=== PATIENT | female | born 1955 | race Caucasian/White ===

== ENCOUNTER 2017-06-17 02:46 | Observation (INO) | payer BC, OTHER ==
[2017-06-17] VITALS (11 sets, daily range): BP systolic 86–102; BP diastolic 47–62
[~2017-06-17] VITALS: Ht 167.6 cm; Wt 60.8 kg
[~2017-06-17 02:46] MED LIST: CALC-18 PO; GLUC100026 PO; MULT-1335 PO; PROG50VI5 TP; [UNRECOGNIZED DRUG - CODE] PO; [UNRECOGNIZED DRUG - OTHER] VG
[2017-06-17 06:09] LABS: PLATELET COUNT, AUTOMATED 245 K/uL (150-450)
[2017-06-17] MEDS ORDERED: MIDAZOLAM 2 MG/2 ML VIAL IVP PRN (06:30)
[2017-06-17] MEDS ORDERED: NORMOSOL R SOLN(*) 1000 ML BAG 1,000 ML IV PRN (06:30)
[2017-06-17] MEDS ORDERED: FAMOTIDINE 20 MG TAB PO ONE (06:30)
[2017-06-17] MEDS ORDERED: LIDOCAINE/SOD BICARB 8.4% SYR ID ONE (06:30)
[2017-06-17] MEDS ORDERED: PHENAZOPYRIDINE 200 MG TAB PO ONE (06:30)
[2017-06-17] MEDS ORDERED: cefOXitin/DEX(*) 2GM/50ML PREM 50 ML IVPB ONE (06:30)
[2017-06-17] MEDS ORDERED: ROPIVACAINE 0.2% 20 ML VIAL ONE (06:38)
[2017-06-17] MEDS ORDERED: NS(*) 0.9% 100 ML BAG 100 ML ONE (06:38)
[2017-06-17] MEDS ORDERED: VASOPRESSIN 20 UNIT/ML VIAL ONE (06:38)
[2017-06-17] MEDS ORDERED: fentaNYL CITR 250 MCG/5 ML AMP ONE (07:08)
[2017-06-17] MEDS ORDERED: DEXAMETHASONE SOD PHOS 10MG/ML ONE (07:09)
[2017-06-17] MEDS ORDERED: LIDOCAINE MPF 1% 5 ML VIAL ONE (07:09)
[2017-06-17] MEDS ORDERED: ONDANSETRON 4 MG/2 ML VIAL ONE (07:09)
[2017-06-17] MEDS ORDERED: PROPOFOL EMUL(*) 10MG/ML 20 ML 20 ML ONE (07:09)
[2017-06-17] MEDS ORDERED: HALOPERIDOL LACT 5 MG/ML VIAL IM ONE (07:15)
[2017-06-17] MEDS ORDERED: NS 0.9% 20 ML SDV 20 ML ONE (07:15)
[2017-06-17] MEDS ORDERED: ACETAMINOPHEN(*)1000 MG/100 ML 100 ML IVPB ONE (07:19)
[2017-06-17] MEDS ORDERED: KETAMINE HCL 200 MG/20 ML MDV ONE (07:28)
[2017-06-17] MEDS ORDERED: ROCURONIUM BROM 10 MG/ML 10 ML ONE (07:30)
[2017-06-17] MEDS ORDERED: KETOROLAC 30 MG/ML VIAL ONE (10:08)
[2017-06-17] MEDS ORDERED: SUGAMMADEX SOD 200 MG/2 ML SDV ONE (10:08)
[2017-06-17] MEDS ORDERED: SIMETHICONE 80 MG CHEW CHEW PRN (10:20)
[2017-06-17] MEDS ORDERED: PROMETHAZINE 25 MG/ML 1 ML AMP IVP PRN (10:20)
[2017-06-17] MEDS ORDERED: ONDANSETRON 4 MG/2 ML VIAL IVP PRN (10:20)
[2017-06-17] MEDS ORDERED: BELLADONNA ALK/OPIUM 60MG SUPP PR PRN (10:20)
[2017-06-17] MEDS ORDERED: ZOLPIDEM TARTRATE 10 MG TAB PO PRN (10:20)
[2017-06-17] MEDS ORDERED: ACETAMINOPHEN 325 MG TAB PO PRN (10:20)
--- NOTE | 2017-06-17 10:34 | Post Operative Note ---
Operative Note - [employer] INST[employer]ER Operative Day Date: Jun 17, 2017 Time: 10:21 Physicians Surgeon: Davey [employer] Instructor: Ivana Anesthesia: GETA Diagnosis Pre-Op Diagnosis: Postmenopausal bleeding Uterine fibroid, cervical Post-Op Diagnosis: same Procedure Findings: large posterior cervical myoma Endometriosis of posterior pelvic peritoneum ROV chocolate cyst adhesions Procedure(s): Laparoscopic adhesiolysis LAVH/BSO/MMC Specimen Removed:(Maybe N/A): Uterus, tubes, ovaries, fibroid Complications: none [id number] Fluids Fluids: 1800 ml Estimated Blood Loss: <100 ml Dictated Date OP Note Dictated: Jun 17, 2017 Time OP Note Dictated: 10:23 Copies to: LUH FINE MD, TRAVIS MD Jun 17, 2017 10:34
[2017-06-17] MEDS ORDERED: fentaNYL CITR 100 MCG/2 ML AMP ONE (10:43)
--- NOTE | 2017-06-17 12:34 | OPERATIVE REPORT 1 ---
EVENT DATE: June 17, 2017 SURGEON: Som Mariscal MD ANESTHESIOLOGIST: Guy Hurtado MD ANESTHESIA: General endotracheal. CLAIM APPROVER: Derik Heath MD PREOPERATIVE DIAGNOSIS 1. Postmenopausal bleeding. 2. Posterior cervical uterine leiomyoma. POSTOPERATIVE DIAGNOSIS 1. Postmenopausal bleeding. 2. Posterior cervical uterine leiomyoma. 3. Endometriosis. PROCEDURE PERFORMED Laparoscopic-assisted vaginal hysterectomy, bilateral salpingo-oophorectomy, laparoscopic adhesiolysis, modified Brown's culdoplasty, diagnostic cystoscopy. ESTIMATED BLOOD LOSS Less than 100 mL. FLUIDS 1800 mL IV crystalloid. INDICATIONS This is a postmenopausal patient who has experienced multiple episodes of postmenopausal bleeding, and we have been having diagnostic difficulty. This large posterior leiomyoma distorts her cervical anatomy, and we have not been able to gain entry into the uterus for adequate tissue sampling. She has had an office endometrial biopsy attempt, and an intraoperative diagnostic H scope, that both have been inconclusive, and without sufficient endometrial tissue for diagnosis. I am not confident that we actually ever were able to sample the endometrium, and was only within the endocervix. On ultrasound, she had a relatively thin endometrial stripe, but over the course of time this uterine leiomyoma had increased in size. Her right ovary also was larger than the left and diffusely heterogeneous. She was consented for laparoscopic-assisted hysterectomy. FINDINGS Upon entering the abdomen with the laparoscope, there was an adhesion to the anterior abdominal wall near the umbilicus and extending toward the liver. This was taken down through the laparoscope. In the pelvis, the posterior cul- de-sac had filmy adhesions, and there was evidence of endometriosis along the right side. The right ovary was scarred to the posterior ovarian fossa with these filmy adhesions and did contain a chocolate cyst. As manipulation opened this cyst, a chocolate-appearing fluid was extruded. This was all consistent with endometriosis. The large myoma occupied the lower uterine segment and the entire posterior cervix, distorting the anatomy in the posterior cul-de-sac. the remainder of the uterus was free and accessible. PROCEDURE IN DETAIL The patient was brought to the operating room with a working IV, placed in the dorsal supine position, and she was placed under general endotracheal anesthesia and moved to the dorsal lithotomy position. She was prepped and draped in the usual sterile fashion. Weighted speculum was placed in the vagina. The cervix was grasped with Yung clamps, and the uterus was attempted to be sounded. The best I could sound was to a depth of 7 cm, markedly anteverted. A 6 cm RICKY uterine manipulator was selected and assembled. The cervix was dilated to accommodate and it was passed through the cervix into the uterus, bulb inflated and secured, and all other instruments were then removed. The legs were brought back to the supine position. We proceeded with the laparoscopy. Gloves were changed. The umbilicus was infiltrated with 0.2% Naropin, and a 5 mm stab incision was made. Veress needle was passed through this incision while stabilizing the anterior abdominal wall, into the abdomen, and a pneumoperitoneum was created to an intraabdominal pressure of 20 mmHg. This was reduced to 15 mmHg once all ports had been placed. The Veress needle was removed. A 5 mm bladeless trocar was passed through this incision while stabilizing the anterior abdominal wall, into the abdomen, and via direct visualization with the scope. This was performed without incident. Two additional 5 mm ports were placed in the right and left lower quadrants under similar technique and via direct visualization. The patient had been moved to the Trendelenburg position. The abdomen and pelvis was surveyed with the above findings noted. The scope was placed in the right lower quadrant port while the Gyrus device was used to take down the omental adhesion that had adhered near this umbilical port. It was carefully taken down and without incident. Cautery was used during this time for hemostasis. Upon completion, the scope was placed back in the umbilical port, and we proceeded with the procedure. The above findings were noted. The left fallopian tube and ovary were put on medial stretch, exposing the infundibulopelvic ligament. We identified the ureter along this side and followed its course into the pelvis. It was well below the operative area. We proceeded, cauterizing and dissecting the left ovary away from the pelvis up to the round ligament, which was likewise cauterized and transected. The broad ligament was then into anterior and posterior leaflets. The anterior leaflet followed along the anterior uterus , and careful dissection was performed in this location because she had a prior scar. Once adequately dissected, the posterior leaflet was dissected off uterine vasculature down to the uterosacral ligament. The uterine vasculature was then cauterized and taken down to the level of the cardinal ligament. The same procedure was followed on the contralateral side without incident. further dissection anteriorly freed up the anterior dissection, and we were able to dissect below the bladder adjacent to the anterior cervix without difficulty. In likewise fashion, the uterine vasculature in this location was cauterized and dissected down to the cardinal ligaments. The uterus was then at this point blanching well. The pneumoperitoneum was released. All instruments were secured to the patient's abdomen and covered with a sterile drape. The patient was moved back to the lithotomy position and we proceeded vaginally. Cervix was grasped again with Yung clamps and a diluted pitressin solution was used for hydrodissection. A vaginal incision was then made circumferentially around the cervix and down as near as I could approximate the posterior cul-de-sac around this fibroid. I was not able to enter the posterior cul-de-sac immediately, but was able to adequately expose this posterior cervical fibroid and allow manual morcellation of it to reduce its size until it was freely extracted. It was sent to pathology with specimen. Once this fibroid had been removed and anatomy had been restored, I was better able then to discern the posterior cul-de-sac, which was then entered sharply with Harden scissors, and a long-billed weighted speculum was inserted here. This exposed the uterosacral ligaments, which were bilaterally clamped, cut and suture ligated with a Vicryl suture and tagged for later identified. Anteriorly, the vaginal mucosa was dissected away from the cervix and pushed back. It was dissected up to he previous laparoscopic dissection, and right angle retractor was inserted in the anterior cul-de-sac. This exposed the cardinal ligaments. These were bilaterally clamped, cut and suture ligated with Vicryl suture type. The remaining vascular pedicle was isolated, clamped, cut, and the specimen was sent to pathology. The remaining pedicle was suture ligated and tagged. There were no visible bleeders at this point. The pelvis was irrigated and suctioned dry. The uterosacral ligament on each side was suture ligated to the ipsilateral vaginal mucosa, and a modified Brown 's culdoplasty was performed with external Brown's sutures incorporated. The parietal peritoneal was then repaired using 2-0 Vicryl in a running non-locking stitch. The uterosacral ligaments were tied in the midline. The remaining vaginal mucosa was repaired with a 2-0 Vicryl in a running locking stitch, and the external Brown's sutures were tied, securing the posterior fourchette of the vagina to the uterosacral ligaments. The Bills catheter was then removed, and diagnostic cystoscopy was performed. The bladder was fully inspected and found to be without injury. Both ureteral orifices were observed to have excellent urine jets with no sign of obstruction. Bladder was then drained, and Bills was left out. The legs were brought back to the supine position. Gloves were changed, and we proceeded again with laparoscopy, moving the patient to the Trendelenburg position and inspecting the pelvis for its operative result. There were no visible bleeders. It was irrigated and suctioned dry. All vascular pedicles were stable. She therefore was returned to the supine position. Pneumoperitoneum was suctioned out. All instruments were removed from the abdomen, and skin incisions were repaired with a 4-0 Monocryl simple subdermal, covered with Dermabond skin adhesive. She tolerated the procedure well. Sponge, lap, needle and instrument counts were all correct x3. She was taken to recovery in stable condition. JAYLAN
[2017-06-17] MEDS: DLR(*) 1000 ML BAG 1,000 ML IV PRN ×2 (13:00→20:19)
[2017-06-17] MEDS: KETOROLAC 30 MG/ML VIAL IVP SCH ×2 (15:50→21:24)
[2017-06-17] MEDS: DOCUSATE CALCIUM 240 MG CAP PO SCH (20:19)
[2017-06-17] MEDS: FAMOTIDINE 20 MG TAB PO SCH (20:19)
--- NOTE | 2017-06-17 21:13 | OB/GYN Progress Note ---
OB Subjective Progress Notes Subjective Doing very well. Pain controlled and nausea controlled. Was having issues earlier but better now. Good UO. GI: NEG Nausea : Voiding Well Pain: Mild OB Objective Physical Exam Vital Signs Date Time Temp Pulse Resp B/P (MAP) Pulse Ox O2 Delivery O2 Flow Rate FiO2 06/17/17 19:16 99 Room Air 06/17/17 18:58 98.8 77 16 99/52 (68) 06/17/17 13:30 1.0 Intake and Output 06/18/17 07:00 Intake Total 3060 ml Output Total 450 ml Balance 2610 ml Intake Oral 50 ml IV Total 3010 ml Output Urine Total 450 ml Urine/Stool Mix 0 ml Emesis 0 ml # Voids 3 General Appearance: Alert/Awake/No Acute Distress Neurological: No Gross deficits Cardiovascular: Normal Rhythm & Peripheral Pulses, Regular Rate and Rhythm Respiratory: No Respiratory Distress, Clear to Auscultation Abdomen: Soft, Non-Tender, Non-Distended Incision: Clean, Dry, Intact Psychological: Alert & Oriented X3, Appropriate Mood & Affect Result Diagram: 06/17/17 6607 Assessment and Plan [employer]PER[employer]ULT [employer]UCATION Plan: Routine Post-Op Care Problems: (1) Status post laparoscopic hysterectomy Assessment & Plan: Continue routine postoperative care. Bills out tomorrow. Nichol nava. LUH FINE MD Jun 17, 2017 21:12
[2017-06-18 01:33] VITALS: BP 100/47
[2017-06-18] MEDS: KETOROLAC 30 MG/ML VIAL IVP SCH (03:17)
[2017-06-18 04:19] VITALS: BP 99/59
[2017-06-18 07:05] VITALS: BP 92/48
--- NOTE | 2017-06-18 07:21 | OB/GYN Progress Note ---
OB Subjective Progress Notes Subjective Doing well. Pain controlled and ambulating increasingly on her how speed and strength. Voiding well. No heavy bleeding. GI: NEG Nausea : Voiding Well Pain: Mild OB Objective Physical Exam Vital Signs Date Time Temp Pulse Resp B/P (MAP) Pulse Ox O2 Delivery O2 Flow Rate FiO2 06/18/17 04:19 99.0 73 16 99/59 (72) 95 Room Air 06/17/17 13:30 1.0 General Appearance: Alert/Awake/No Acute Distress Neurological: No Gross deficits Cardiovascular: Normal Rhythm & Peripheral Pulses, Regular Rate and Rhythm Respiratory: No Respiratory Distress, Clear to Auscultation Abdomen: Soft, Non-Tender, Non-Distended Incision: Clean, Dry, Intact Integumentary: Skin Intact without Lesions or Rash Psychological: Alert & Oriented X3, Appropriate Mood & Affect Result Diagram: 06/17/17 0288 Assessment and Plan HEMODIALYSIS CHARGE NURSE Plan: Discharge Home Today Problems: (1) Status post laparoscopic hysterectomy LUH FINE MD Jun 18, 2017 07:21
[2017-06-18] MEDS ORDERED: PER PO (07:22)
--- NOTE | 2017-06-18 07:23 | Short(Outpt) Discharge Summary ---
Discharge Summary Reason for Hosp/Final Diag: (1) Status post laparoscopic hysterectomy Hospital Course & Plan: Continue routine postoperative care. Bills out tomorrow. May SLEILEEN tonight. Departure Discharge to: Home, Self Care Discharge Instructions Home Meds Active Scripts Oxycodone/Acetaminophen (OXYCODONE/ACETAMINOPHEN 5MG/325 MG) 5 Mg/325 Mg Tab, 1- 2 TAB PO Q4H Y for PAIN, #14 TAB 0 Refills Prov:LUH MARISCAL MD 06/18/17 Reported Medications Vaginal Moisturizer Combo No.2 (LONG LASTING VAGINAL) 7.5 Gm Gel.pf.citlali, 2-3 CITLALI VG PRN 10/16/15 Progesterone (PROGESTERONE IN OIL) 50 Mg/1 Ml Vial, 2 DROP TP BID, VIAL 10/16/15 [place]-3 Fatty Acids (SUPER OMEGA-3) 1,000 Mg Capsule, 3 CAP PO QDAY, CAPSULE 10/16/15 Calcium Carbonate (CALCIUM) 500 Mg Tab.chew, 4 TAB PO QDAY, TAB.CHEW 10/16/15 Glucosamine Sulfate 2KCL (GLUCOSAMINE) 1,000 Mg Tablet, 4 TAB PO QDAY 10/16/15 Multivitamin With Minerals (MULTIPLE VITAMIN) 1 Each Tablet, 1 EACH PO QDAY, TAB 10/16/15 Follow up Referrals: TANNING WHEEL FILLER - In Two Weeks @ [facility] with Luh Mariscal Md Diet: Regular Activity: As Tolerated, No Heavy Lifting, No Exertion Copies to: LUH MARISCAL MD, TRAVIS MD Jun 18, 2017 07:23
[2017-06-18 07:35] LABS: PLATELET COUNT, AUTOMATED 200 K/uL (150-450)
[2017-06-18] MEDS: DOCUSATE CALCIUM 240 MG CAP PO SCH (08:50)
[2017-06-18] MEDS: FAMOTIDINE 20 MG TAB PO SCH (08:51)
[2017-06-18] MEDS ORDERED: IBUPROFEN 800 MG TAB PO PRN (10:00)
[2017-06-18] MEDS ORDERED: INFLUENZA VIRUS VAC 0.5 ML SYR IM ONLY ONE (10:20)
[2017-06-18 11:10] VITALS: BP 88/49
== END 2017-06-18 07:22 | disposition home or self-care (01) ==
LOC: OR 02:46 → PED 12:00
PROVIDERS: ADMIT Obstetrics & Gynecology; ATTEND Obstetrics & Gynecology
DX: N95.0 Postmenopausal bleeding (principal); D25.9 Leiomyoma of uterus, unspecified
CPT/HCPCS: 36415; 58552; 85014; 85018; 85025; 88307; G0378; J0131; J0694; J1100; J1630; J1885; J2001; J2250; J2405; J2704; J2795; J3010; J3490; J7050